=== PATIENT | male | born 1935 | race Caucasian/White ===

== ENCOUNTER 2019-07-01 11:01 | Emergency (ER) | payer MEDICARE, OTHER ==
[2019-07-01 11:27] VITALS: TEMP 97.9
[2019-07-01] MEDS ORDERED: SODIUM CHLORIDE 0.9% (FLUSH) 10 ML SYG IV PRN (11:44)
--- NOTE | 2019-07-01 12:26 | CT ---
PROVIDED CLINICAL HISTORY/REASON FOR EXAM: Worsening headache TECHNIQUE: Volumetric CT data of the brain was obtained without intravenous contrast. This exam was performed according to our departmental dose-optimization program, which includes automated exposure control, adjustment of the mA and/or kV according to patient size and/or use of iterative reconstruction technique. COMPARISON: None available. FINDINGS: Age-related volume loss. Septum pellucidum and third ventricle are midline. No acute infarction is evident by CT. No acute hemorrhage is present. No mass or mass effect is present. The calvaria and soft tissues are unremarkable. The visualized paranasal sinuses are unremarkable. IMPRESSION: No acute intracranial abnormalities. Electronically signed by: Hudson Martinez MD 07/01/2019 12:25 PM [employer]
[2019-07-01] MEDS ORDERED: PROCHLORPERAZINE INJ 10 MG/2 ML VIAL IV ONE (12:30)
[2019-07-01] MEDS ORDERED: KETOROLAC TROMETHAMINE INJ 30 MG/ML VIAL IV ONE (12:30)
[2019-07-01] MEDS ORDERED: MAGNESIUM SULFATE INJ 1 GM in SODIUM CHLORIDE 0.9% 100ML 100 ML IVPB ONE (12:31)
[2019-07-01] MEDS ORDERED: ONDANSETRON ODT 8 MG TAB SL ONE (12:48)
[2019-07-01] MEDS ORDERED: MAGNESIUM SULFATE INJ 1 GM/2 ML VIAL ONE (12:48)
[2019-07-01] MEDS ORDERED: SODIUM CHLORIDE 0.9% 100ML 100 ML IVPB ONE (12:49)
[2019-07-01 13:04] VITALS: O2SAT 96
--- NOTE | 2019-07-01 13:34 | ED.PDOC ---
History of Present Illness - General Chief Complaint: General Stated Complaint: Neck stiffness, headache Time Seen by Provider: 07/01/19 11:44 Source: patient, RN notes reviewed, Vital Signs reviewed, other - ward maid Exam Limitations: no limitations Additional Information: patient is an 84-year-old white male who presents with complaints of headache starting last night. Patient states he does not usually get headaches. Patient angina and diabetes, but is noncompliant with taking any of his medications. Patient states that the headache is worse when he is active. At 8. Niacin any blurry vision, nausea, vomiting, diarrhea, chest pain, shortness of breath. Patient also states that he had some confusion last night and by morning. - History of Present Illness Timing/Duration: 24 hours, changing over time Severity: mild Improving Factors: nothing Worsening Factors: movement Associated Symptoms: headaches, malaise Allergies/Adverse Reactions: Allergies NO KNOWN ALLERGY Allergy (Verified 07/05/15 09:47) Home Medications: Ambulatory Orders Prochlorperazine Tab [Compazine Tab] 10 mg PO Q6H #12 tab 07/01/19 Review of Systems - Review of Systems Constitutional: States: see HPI, malaise, weakness EENTM: States: no symptoms reported. Denies: eye pain, blurred vision, tearing, double vision Respiratory: States: no symptoms reported. Denies: short of breath, wheezing Cardiology: States: no symptoms reported. Denies: chest pain, palpitations, syncope Gastrointestinal/Abdominal: States: no symptoms reported. Denies: abdominal pain, diarrhea, nausea, vomiting Genitourinary: States: no symptoms reported Musculoskeletal: States: no symptoms reported Skin: States: no symptoms reported Neurological: States: see HPI, headache, weakness Endocrine: States: no symptoms reported Hematologic/Lymphatic: States: no symptoms reported All other Systems: Reviewed and Negative Past Medical History (General) - Patient Medical History Hx Seizures: No Hx Stroke: No Hx Asthma: No Hx of COPD: Yes Hx Cardiac Disorders: No Hx Congestive Heart Failure: No Hx Pacemaker: No Hx Hypertension: No Hx Diabetes: Yes Hx MRSA: No Surgical History: appendectomy, cholecystectomy - Vaccination History Hx Tetanus, Diphtheria Vaccination: Yes - 2016 Hx Influenza Vaccination: No Hx Pneumococcal Vaccination: No - Social History Hx Tobacco Use: Yes Hx Chewing Tobacco Use: Yes Hx Alcohol Use: Yes Hx Substance Use: No Hx Substance Use Treatment: No Hx Depression: No Hx Physical Abuse: No Hx Emotional Abuse: No - Female History Patient : No Family Medical History - Family History Mother Family History: Unknown Living Status: Father Living Status: Hx Cardiac Disease: Yes Physical Exam - Physical Exam General Appearance: Alert, No apparent distress, Well Developed, Well Groomed, Well Hydrated, Well Nourished Eye Exam: bilateral normal Ears, Nose, Throat: hearing grossly normal, normal ENT inspection, normal pharynx Neck: non-tender, full range of motion, supple, normal inspection Respiratory: chest non-tender, lungs clear, normal breath sounds, no respiratory distress, no accessory muscle use Cardiovascular/Chest: normal peripheral pulses, regular rate, rhythm, no edema, no gallop, no JVD, no murmur Gastrointestinal/Abdominal: normal bowel sounds, non tender, soft Back Exam: normal inspection, no CVA tenderness, no vertebral tenderness Neurologic: lmft II-XII nml as tested, no motor/sensory deficits, alert, normal mood/affect, oriented x 3 Skin Exam: normal color, warm/dry Lymphatic: no adenopathy Progress - Progress Progress: differential diagnosis: Migraine headache, malignant hypertension, hyperglycemia, intracranial bleed among others. 07/01/19 13:55 patient's headache has completely resolved after IV medications. Patient is back to baseline. And on discharge home with a prescription for Compazine. I suspect the confusion was secondary to the headache. His blood pressure is slightly better control but I do not believe this to be the source of his headache as his headache is resolved as blood pressure has not changed markedly. and follow up with PCP. Discussed this plan of care with patient and he voices understanding and agreement with the plan of care. - Results/Orders Results/Orders: 07/01/19 11:44 IV Care:Saline Lock per Protoc QSHIFT Sodium Chloride 0.9% (Flush) [Saline Flush Syringe] 10 ml IV PRN PRN 07/01/19 13:50 URINALYSIS Stat Laboratory Results - last 24 hr 07/01/19 07/01/19 07/01/19 11:55 11:55 11:55 WBC 6.8 RBC 4.80 Hgb 15.4 Hct 46.0 MCV 95.9 H MCH 32.1 H MCHC 33.5 RDW 13.8 Plt Count 181 MPV 9.3 Absolute Neuts (auto) 5.40 Absolute Lymphs (auto) 0.90 L Absolute Monos (auto) 0.40 Absolute Eos (auto) 0.10 Absolute Basos (auto) 0.00 Neutrophils % 79.0 H Lymphocytes % 13.0 L Monocytes % 6.1 Eosinophils % 1.3 Basophils % 0.6 Sodium 136 Potassium 4.5 Chloride 101 Carbon Dioxide 25 Anion Gap 14.5 BUN 15 Creatinine 0.96 BUN/Creatinine Ratio 15.6 Random Glucose 160 H Serum Osmolality 276.2 Calcium 9.3 Total Bilirubin 0.7 Direct Bilirubin 0.1 Indirect Bilirubin 0.6 AST 15 ALT 14 Alkaline Phosphatase 42 Serum Total Protein 6.9 [address]in 3[address] Head w/o Contrast. PROVIDED CLINICAL HISTORY/REASON FOR EXAM: Worsening headache TECHNIQUE: Volumetric CT data of the brain was obtained without intravenous contrast. This exam was performed according to our departmental dose-optimization program, which includes automated exposure control, adjustment of the mA and/or kV according to patient size and/or use of iterative reconstruction technique. COMPARISON: None available. FINDINGS: Age-related volume loss. Septum pellucidum and third ventricle are midline. No acute infarction is evident by CT. No acute hemorrhage is present. No mass or mass effect is present. The calvaria and soft tissues are unremarkable. The visualized paranasal sinuses are unremarkable. IMPRESSION: No acute intracranial abnormalities. Electronically signed by: Hudson Martinez MD 07/01/2019 12:25 PM Departure - Departure Clinical Impression: Accelerated hypertension, Noncompliance with medication regimen Migraine headache Qualifiers: Migraine type: without aura Status migrainosus presence: without status migrainosus Intractability: not intractable Qualified Code(s): G43.009 - Migraine without aura, not intractable, without status migrainosus Hyperglycemia due to type 2 diabetes mellitus Qualifiers: Diabetes mellitus mcfp insulin use: without mcfp use Qualified Code(s): E11.65 - Type 2 diabetes mellitus with hyperglycemia Time of Disposition: 14:00 Disposition: Discharge to Home or Self Care Condition: Good Departure Forms: ED Discharge - Pt. Copy, Patient Portal Self Enrollment Instructions: Migraine Headache (DC), High Blood Pressure (DC) Referrals: Tony Chan MD [Primary Care Provider] - 1-5 Days Prescriptions: Prochlorperazine Tab [Compazine Tab] 10 mg PO Q6H #12 tab Home Medications: Ambulatory Orders Prochlorperazine Tab [Compazine Tab] 10 mg PO Q6H #12 tab 07/01/19
[2019-07-01 15:33] VITALS: BP 158/88
== END 2019-07-01 14:35 | disposition home or self-care (01) ==
LOC: ER 11:01
DX: G43.009 Migraine without aura, not intractable, without status migrainosus (principal); I10 Essential (primary) hypertension; E11.65 Type 2 diabetes mellitus with hyperglycemia; R41.0 Disorientation, unspecified; J44.9 Chronic obstructive pulmonary disease, unspecified; Z91.14 Patient's other noncompliance with medication regimen; Z87.891 Personal history of nicotine dependence
CPT/HCPCS: 36415; 70450; 80048; 80076; 81001; 83690; 85025; J0780; J1885; J3475; J7050

== ENCOUNTER → 2019-08-19 | Outpatient (CLI) | payer MEDICARE | LOC: YCFC.O 07:43 | PROVIDERS: ATTEND Family Medicine | DX: I10 Essential (primary) hypertension (principal); E83.42 Hypomagnesemia; R53.83 Other fatigue; R35.1 Nocturia; Z86.39 Personal history of other endocrine, nutritional and metabolic disease ==

== ENCOUNTER → 2019-12-30 | Outpatient (CLI) | payer MEDICARE, OTHER | LOC: YCFC.O 08:00 | PROVIDERS: ATTEND Family Medicine | DX: R79.89 Other specified abnormal findings of blood chemistry (principal); E83.42 Hypomagnesemia ==

== ENCOUNTER → 2020-03-02 | Outpatient (CLI) | payer MEDICARE, OTHER | LOC: YCFC.O 08:33 | PROVIDERS: ATTEND Family Medicine | DX: R53.83 Other fatigue (principal); R79.89 Other specified abnormal findings of blood chemistry ==

== ENCOUNTER → 2020-05-04 | Outpatient (CLI) | payer OTHER | LOC: LAB.O 09:23 | PROVIDERS: ATTEND Family Medicine | DX: R79.89 Other specified abnormal findings of blood chemistry (principal); R53.83 Other fatigue ==

== ENCOUNTER → 2020-09-14 | Outpatient (CLI) | payer OTHER ==
--- NOTE | 2020-09-15 09:05 | RAD ---
EXAM DESCRIPTION: Abdomen Series CLINICAL HISTORY: 85 years Male, diarrhea COMPARISON: 06/09/2016 Findings: 3 view(s)/radiograph(s) Cardiac silhouette and pulmonary vasculature are within normal limits. No pneumothorax. No pleural effusion. Emphysema. Patchy bibasilar airspace disease. No free air beneath the diaphragm. No air-fluid level. Moderate stool volume. Nonobstructive bowel gas pattern. No suspicious calcification. Cholecystectomy. No acute or suspicious osseous abnormality. Scattered degenerative changes present. IMPRESSION: Patchy bibasilar airspace disease; atelectasis or pneumonia. Nonobstructive bowel gas pattern. Electronically signed by: Hudson Martinez MD 09/15/2020 9:03 AM [employer]
== END ==
LOC: YCFC.O 15:34
PROVIDERS: ATTEND Nurse Practitioner Family
DX: R19.7 Diarrhea, unspecified (principal)

== ENCOUNTER → 2020-09-15 | Outpatient (CLI) | payer OTHER | LOC: YCFC.O 09:36 | PROVIDERS: ATTEND Nurse Practitioner Family | DX: R79.89 Other specified abnormal findings of blood chemistry (principal); R19.7 Diarrhea, unspecified ==

== ENCOUNTER → 2020-09-21 | Outpatient (CLI) | payer OTHER ==
--- NOTE | 2020-09-22 09:38 | RAD ---
EXAM DESCRIPTION: Abdomen Flat Upright CLINICAL HISTORY: 85 years Male, DIARRHEA COMPARISON: September 14, 2020 Findings: Two view(s)/radiograph(s) Visualized lung bases are clear. Cholecystectomy. Nonobstructive bowel gas pattern. Small stool volume. No air-fluid level. No free air. Osteopenia. No acute osseous abnormality. No suspicious calcification. IMPRESSION: Nonobstructive bowel gas pattern. Electronically signed by: Hudson Martinez MD 09/22/2020 9:36 AM [employer]
== END ==
LOC: YCFC.O 13:57
PROVIDERS: ATTEND Family Medicine
DX: R19.7 Diarrhea, unspecified (principal); R73.01 Impaired fasting glucose; R53.83 Other fatigue

== ENCOUNTER → 2020-10-20 | Outpatient (CLI) | payer OTHER ==
--- NOTE | 2020-10-21 09:45 | RAD ---
EXAM DESCRIPTION: XR CHEST 2 VIEWS CLINICAL HISTORY: Rib injury. Chest pain COMPARISON: Rib series radiographs TECHNIQUE: PA/lateral FINDINGS: Heart size is normal. The lungs are clear. Fractures of the right posterior lateral eighth and ninth ribs. No pneumothorax. No pleural fluid Healed left posterior lateral sixth rib fracture. Multilevel degenerative change in the spine with smooth kyphosis. IMPRESSION: No acute cardiopulmonary process Fractures of the right eighth and ninth ribs Electronically signed by: Judd Strong MD 10/21/2020 9:43 AM [facility]
--- NOTE | 2020-10-21 09:55 | RAD ---
EXAM: Ribs,Right 3 Views INDICATION: 85 years Male, INJURY OF RIBS COMPARISON: None available FINDINGS: 3 images of the right ribs were performed. Nondisplaced fractures of the right posterior lateral eighth and ninth ribs. Opacities projecting over the ninth rib could represent mild sclerosis, although underlying minor lung contusion is difficult to entirely exclude. Surgical clips in the right upper quadrant. Degenerative changes in the spine. IMPRESSION: Nondisplaced fractures of the right eighth and ninth rib. Additional findings as above. Electronically signed by: Roxana Hernandes MD 10/21/2020 9:54 AM [facility]
== END ==
LOC: YCFC.O 12:10
PROVIDERS: ATTEND Family Medicine
DX: S22.41XA Multiple fractures of ribs, right side, initial encounter for closed fracture (principal)